=== PATIENT | female | born 1975 | race Two or more races ===

== ENCOUNTER 2018-02-28 14:06 | Outpatient (RCR) | payer SELFPAY ==
--- NOTE | 2018-03-09 14:06 | Consultation ---
History of Present Illness General Chief Complaint: swelling face Reason for Consultation: evaluation of swelling for hyperbaric oxygen treat Present Illness HPI female presents with edema of face after cosmetic procedure Patient History Healthcare decision maker Resuscitation status Advanced Directive on File ASHKAN STEWART M.D. Mar 09, 2018 14:06
== END 2018-03-25 | disposition home or self-care (01) ==
LOC: WCC 14:06
DX: H02.842 Edema of right lower eyelid (principal); H02.845 Edema of left lower eyelid